=== PATIENT | male | born 1990 | race Caucasian/White ===

== ENCOUNTER 2016-06-11 03:31 | Emergency (ER) | payer OTHER ==
[2016-06-11 03:51] VITALS: BMI 26.6
[2016-06-11] MEDS ORDERED: LORAZEPAM CARPU-JECT 2 MG/ML DISP.SYRIN IVPUSH ONE (04:01)
[2016-06-11] MEDS ORDERED: ASPIRIN 325 MG ENTERIC COATED TABLET (FP) PO ONE (04:04)
[2016-06-11] MEDS ORDERED: LORAZEPAM CARPU-JECT 2 MG/ML DISP.SYRIN ONE (04:08)
[2016-06-11] MEDS ORDERED: ASPIRIN 325 MG ENTERIC COATED TABLET (FP) ONE (04:08)
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
[2016-06-11] MEDS ORDERED: SODIUM CHLORIDE 1,000 ML IV SCH (04:15)
[2016-06-11 04:26] LABS: BASOPHIL 0.7 % (0-2.0); EOSINOPHIL 0.3 % (0-4.5); MCH 28.1 pg (25.7-33.7); MCHC 32.9 g/dl (32.0-35.9); MEAN CELL VOLUME 85.4 fl (80-96); MEAN PLT VOLUME 7.6 fl (7.5-11.1); NEUTROPHILS 79.3 % (42.8-82.8); PLATELET COUNT 253 K/MM3 (134-434); RDW 14.2 % (11.9-15.9); WHITE BLOOD COUNT 11.9 K/mm3 (4.0-10.0)
[2016-06-11 04:27] LABS: URINE APPEARANCE CLEAR; URINE BILIRUBIN NEGATIVE (NEGATIVE); URINE COLOR COLORLESS; URINE GLUCOSE (UA) NEGATIVE (NEGATIVE); URINE KETONE NEGATIVE (NEGATIVE); URINE LEUK ESTERASE NEGATIVE (NEGATIVE); URINE NITRITE NEGATIVE (NEGATIVE); URINE PROTEIN NEGATIVE (NEGATIVE); URINE UROBILINOGEN NEGATIVE E.U./dl (0.2-1.0)
[2016-06-11 04:28] LABS: URINE BLOOD 1+ (NEGATIVE)
[2016-06-11 04:29] LABS: URINE BACTERIA RARE /hpf (NONE SEEN); URINE RBC <1 /hpf (0-3); URINE WBC <1 /hpf (3-5)
[2016-06-11 04:42] LABS: URINE MARIJUANA THC POSITIVE ng/ml (CUTOFF=50)
[2016-06-11 04:44] LABS: INR 1.27 (0.82-1.09)
[2016-06-11 04:47] LABS: ACTIVATED PTT 39.2 SECONDS (26.9-34.4)
[2016-06-11 04:55] LABS: ALBUMIN 4.2 g/dl (3.4-5.0); ANION GAP 10 (8-16); BILIRUBIN,TOTAL 0.2 mg/dL (0.2-1.0); CALCIUM 9.5 mg/dL (8.5-10.1); CO2 28 mmol/L (21-32); CREATININE 0.8 mg/dL (0.7-1.3); GLUCOSE,RANDOM 95 mg/dL (74-106); SGOT/AST 15 U/L (15-37); SGPT/ALT 25 U/L (12-78); TOT PROT 7.5 g/dl (6.4-8.2)
[2016-06-11 04:58] LABS: ALK PHOS 77 U/L (45-117); TROPONIN I < 0.02 ng/ml (0.00-0.05)
[2016-06-11 07:36] LABS: TROPONIN I < 0.02 ng/ml (0.00-0.05)
--- NOTE | 2016-06-11 07:44 | PDOC ---
*Physical Exam - Vital Signs Last Vital Signs Temp Pulse Resp BP Pulse Ox 98.3 F 80 18 120/73 99 06/11/16 03:44 06/11/16 07:00 06/11/16 07:00 06/11/16 07:00 06/11/16 07:00 ED Treatment Course - LABORATORY CBC & Chemistry Diagram: 06/11/16 04:02 06/11/16 04:02 - ADDITIONAL ORDERS Additional order review: Laboratory Results 06/11/16 06/11/16 06/11/16 06:40 04:18 04:18 INR 1.27 H PTT (Actin FS) 39.2 H D-Dimer < 200 Sodium Potassium Chloride Carbon Dioxide Anion Gap BUN Creatinine Creat Clearance w eGFR Random Glucose Calcium Total Bilirubin AST ALT Alkaline Phosphatase Creatine Kinase 178 Creatine Kinase Index CK-MB (CK-2) CK-MB (CK-2) Rel Index Troponin I < 0.02 Total Protein Albumin Urine Color Urine Appearance Urine pH Ur Specific [place] Urine Protein Urine Glucose (UA) Urine Ketones Urine Blood Urine Nitrite Urine Bilirubin Urine Urobilinogen Ur Leukocyte Esterase Urine RBC Urine WBC Urine Bacteria Opiates Screen Methadone Screen Barbiturate Screen Phencyclidine Screen Ur Amphetamines Screen MDMA (Ecstasy) Screen Benzodiazepines Screen Cocaine Screen U Marijuana (THC) Screen 06/11/16 06/11/16 06/11/16 04:02 04:02 04:02 INR PTT (Actin FS) D-Dimer Sodium 141 Potassium 4.1 Chloride 103 Carbon Dioxide 28 Anion Gap 10 BUN 16 D Creatinine 0.8 D Creat Clearance w eGFR > 60 Random Glucose 95 Calcium 9.5 Total Bilirubin 0.2 AST 15 ALT 25 Alkaline Phosphatase 77 Creatine Kinase 217 D Creatine Kinase Index Y CK-MB (CK-2) < 1.000 CK-MB (CK-2) Rel Index Cancelled Troponin I < 0.02 Total Protein 7.5 Albumin 4.2 Urine Color Urine Appearance Urine pH Ur Specific [place] Urine Protein Urine Glucose (UA) Urine Ketones Urine Blood Urine Nitrite Urine Bilirubin Urine Urobilinogen Ur Leukocyte Esterase Urine RBC Urine WBC Urine Bacteria Opiates Screen Negative Methadone Screen Negative Barbiturate Screen Negative Phencyclidine Screen Positive Ur Amphetamines Screen Negative MDMA (Ecstasy) Screen Negative Benzodiazepines Screen Negative Cocaine Screen Negative U Marijuana (THC) Screen Positive 06/11/16 04:02 INR PTT (Actin FS) D-Dimer Sodium Potassium Chloride Carbon Dioxide Anion Gap BUN Creatinine Creat Clearance w eGFR Random Glucose Calcium Total Bilirubin AST ALT Alkaline Phosphatase Creatine Kinase Creatine Kinase Index CK-MB (CK-2) CK-MB (CK-2) Rel Index Troponin I Total Protein Albumin Urine Color Colorless Urine Appearance Clear Urine pH 6.0 Ur Specific [place] 1.006 Urine Protein Negative Urine Glucose (UA) Negative Urine Ketones Negative Urine Blood 1+ H Urine Nitrite Negative Urine Bilirubin Negative Urine Urobilinogen Negative Ur Leukocyte Esterase Negative Urine RBC <1 Urine WBC <1 Urine Bacteria Rare Opiates Screen Methadone Screen Barbiturate Screen Phencyclidine Screen Ur Amphetamines Screen MDMA (Ecstasy) Screen Benzodiazepines Screen Cocaine Screen U Marijuana (THC) Screen 06/11/16 04:02 RBC 5.37 MCV 85.4 MCHC 32.9 RDW 14.2 MPV 7.6 Neutrophils % 79.3 D Lymphocytes % 13.9 D Monocytes % 5.8 Eosinophils % 0.3 Basophils % 0.7 - Medications Given in the ED: ED Medications Discontinued Medications Generic Name Dose Route Start Last Admin Trade Name Esther PRN Reason Stop Dose Admin Aspirin 325 mg 06/11/16 04:04 06/11/16 04:25 Ecotrin - PO 06/11/16 04:05 325 mg ONCE ONE Administration Lorazepam 2 mg 06/11/16 04:01 06/11/16 04:25 Ativan Injection - IVPUSH 06/11/16 04:02 2 mg ONCE ONE Administration Medical Decision Making - Medical Decision Making 06/11/16 07:51 Patient endorsed to me by Dr. Deng at shift change. Patient presented with chest pain after using cocaine. UTox showed that it was actually PCP, and not cocaine. Serial trops negative x2. Stable for DC home. *DC/Admit/Observation/Transfer Diagnosis at time of Disposition: Chest pain Qualifiers: Chest pain type: unspecified Qualified Code(s): R07.9 - Chest pain, unspecified - Discharge Dispostion Disposition: HOME Condition at time of disposition: Stable Admit: No - Referrals Referrals: Jerman Zavala [Primary Care Provider] - - Patient Instructions Printed Discharge Instructions: DI for Chest Pain - Post Discharge Activity
[2016-06-11 07:51] VITALS: BP 114/67; PULSE 78; TEMP 98
--- NOTE | 2016-06-12 21:33 | EKG ---
Test Reason : Blood Pressure : / mmHG Vent. Rate : 109 BPM Atrial Rate : 109 BPM P-R Int : 132 ms QRS Dur : 082 ms QT Int : 294 ms P-R-T Axes : 073 060 033 degrees QTc Int : 395 ms SINUS TACHYCARDIA BIATRIAL ENLARGEMENT ST ELEVATION, CONSIDER EARLY REPOLARIZATION, PERICARDITIS, OR INJURY NONSPECIFIC ST AND T WAVE ABNORMALITY ABNORMAL ECG WHEN COMPARED WITH ECG OF 08-SEP-2012 14:11, VENT. RATE HAS INCREASED BY 40 BPM NONSPECIFIC T WAVE ABNORMALITY IS NOW PRESENT Confirmed by CHIN STUART MD ([id number]) on 06/12/2016 9:33:18 PM Referred By: Confirmed By:CHIN STUART MD
== END 2016-06-11 08:03 | disposition home or self-care (01) ==
LOC: JER 03:31
PROC: 3E033NZ Introduction of Analgesics, Hypnotics, Sedatives into Peripheral Vein, Percutaneous Approach (ICD-10-PCS; principal; 2016-06-11)
DX: R07.9 Chest pain, unspecified (principal); J45.909 Unspecified asthma, uncomplicated; F14.10 Cocaine abuse, uncomplicated; F16.10 Hallucinogen abuse, uncomplicated
CPT/HCPCS: 36415; 71020-TC; 80053; 80307; 81003; 81015; 82550; 82553; 84484; 85025; 85379; 85610; 85651; 85730; 93005; 93010; 96374; 99285-25

== ENCOUNTER 2016-06-28 09:16 | Inpatient (IN) | payer OTHER ==
[2016-06-28 11:23] VITALS: BMI 25.0
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
[2016-06-28] MEDS ORDERED: ACETAMINOPHEN 325 MG TABLET (FP) PO PRN (14:19)
[2016-06-28] MEDS ORDERED: guaiFENesin/D-METHORPHAN HB 10 ML UNIT-DOSE CUPS PO PRN (14:19)
[2016-06-28] MEDS ORDERED: IBUPROFEN 400 MG TABLET (FP) PO PRN (14:19)
[2016-06-28] MEDS ORDERED: MAG HYDROX/AL HYDROX/SIMETH 30 ML UNIT-DOSE CUP PO PRN (14:19)
[2016-06-28] MEDS ORDERED: P-EPHED 60MG/TRIPROLIDI 2.5MG TABLET PO PRN (14:19)
[2016-06-28] MEDS ORDERED: chlordiazePOXIDE HCL 25 MG CAPSULE PO PRN (14:19)
[2016-06-28] MEDS ORDERED: MENTHOL/PHENOL 1 EACH UD MM PRN (14:19)
[2016-06-28] MEDS ORDERED: LOPERAMIDE HCL 2 MG CAPSULE PO PRN (14:19)
[2016-06-28] MEDS ORDERED: MAGNESIUM CITRATE 300 ML BOTTLE PO PRN (14:19)
[2016-06-28] MEDS ORDERED: MAGNESIUM HYDROX 2400MG/30ML ORAL SUSPENSION 30 ML CUP PO PRN (14:19)
[2016-06-28] MEDS ORDERED: hydrOXYzine PAMOATE 50 MG CAPSULE (FP) PO PRN (14:19)
[2016-06-28] MEDS ORDERED: ALBUTEROL SO4 6.7 GM HFA INHALER IH PRN (14:21)
[2016-06-28] MEDS ORDERED: chlordiazePOXIDE HCL 25 MG CAPSULE PO ONE (14:24)
[2016-06-28 16:48] LABS: URINE APPEARANCE CLEAR; URINE BILIRUBIN NEGATIVE (NEGATIVE); URINE BLOOD NEGATIVE (NEGATIVE); URINE COLOR YELLOW; URINE GLUCOSE (UA) NEGATIVE (NEGATIVE); URINE KETONE NEGATIVE (NEGATIVE); URINE LEUK ESTERASE NEGATIVE (NEGATIVE); URINE NITRITE NEGATIVE (NEGATIVE); URINE PROTEIN NEGATIVE (NEGATIVE); URINE UROBILINOGEN NEGATIVE E.U./dl (0.2-1.0)
[2016-06-28] MEDS: chlordiazePOXIDE HCL 25 MG CAPSULE PO SCH ×2 (17:19→22:05)
[2016-06-28] MEDS: diphenhydrAMINE HCL 50 MG CAPSULE PO PRN (22:05)
[2016-06-28] MEDS: THIAMINE HCL 100 MG TABLET (FP) PO SCH (22:06)
[2016-06-29] MEDS: chlordiazePOXIDE HCL 25 MG CAPSULE PO SCH ×4 (05:35→22:37)
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
[2016-06-29 10:14] LABS: HIV 1 & 2 AB NEGATIVE; HIV 1 AGp24 NEGATIVE
[2016-06-29 10:17] LABS: MCHC 32.4 g/dl (32.0-35.9); MEAN CELL VOLUME 86.2 fl (80-96); MEAN PLT VOLUME 8.5 fl (7.5-11.1); PLATELET COUNT 252 K/MM3 (134-434); RDW 13.4 % (11.9-15.9)
[2016-06-29] MEDS: PRENATAL VITAMINS W/ FOLIC ACID TABLET (FP) PO SCH (10:30)
[2016-06-29 10:50] LABS: ALBUMIN 3.9 g/dl (3.4-5.0); ALK PHOS 80 U/L (45-117); ANION GAP 9 (8-16); BILIRUBIN,TOTAL 0.4 mg/dL (0.2-1.0); CALCIUM 9.2 mg/dL (8.5-10.1); CO2 29 mmol/L (21-32); GLUCOSE,RANDOM 75 mg/dL (74-106); SGOT/AST 14 U/L (15-37); SGPT/ALT 24 U/L (12-78); TOT PROT 7.5 g/dl (6.4-8.2)
--- NOTE | 2016-06-29 11:07 | EKG ---
Test Reason : Blood Pressure : / mmHG Vent. Rate : 082 BPM Atrial Rate : 082 BPM P-R Int : 132 ms QRS Dur : 086 ms QT Int : 344 ms P-R-T Axes : 042 062 -02 degrees QTc Int : 401 ms SINUS RHYTHM WITH MARKED SINUS ARRHYTHMIA NONSPECIFIC T WAVE ABNORMALITY ABNORMAL ECG WHEN COMPARED WITH ECG OF 11-JUN-2016 03:51, NO SIGNIFICANT CHANGE WAS FOUND Confirmed by GIBSON STEELE, LORA ([id number]) on 06/29/2016 11:07:09 AM Referred By: Will Hartman Confirmed By:LORA ARREAGA MD
--- NOTE | 2016-06-29 11:15 | PN ---
S CIWA - CIWA Score Nausea/Vomitin-No Nausea/No Vomiting Muscle Tremors: 4-Moderate,w/Arms Extend Anxiety: 3 Agitation: 4-Moderately Restless Paroxysmal Sweats: 3 Orientation: 0-Oriented Tacttile Disturbances: 0-None Auditory Disturbances: 0-None Visual Disturbances: 0-None Headache: 1-Very Mild CIWA-Ar Total Score: 15 BHS Progress Note (SOAP) Subjective: sweats shakes interrupted sleep agitation body aches Objective: 06/29/16 11:14 Vital Signs Temperature 97.7 F 06/29/16 10:00 Pulse Rate 95 H 06/29/16 10:00 Respiratory Rate 20 06/29/16 10:00 Blood Pressure 130/62 06/29/16 10:00 O2 Sat by Pulse Oximetry (%) Laboratory Tests 06/28/16 06/28/16 06/29/16 11:30 15:30 06:00 WBC 9.0 RBC 5.63 H Hgb 15.8 Hct 48.6 MCV 86.2 MCHC 32.4 RDW 13.4 Plt Count 252 MPV 8.5 D Sodium Potassium Chloride Carbon Dioxide Anion Gap BUN Creatinine Creat Clearance w eGFR Random Glucose Calcium Total Bilirubin AST ALT Alkaline Phosphatase Total Protein Albumin Urine Color Yellow Urine Appearance Clear Urine pH 5.0 Ur Specific [place] 1.023 Urine Protein Negative Urine Glucose (UA) Negative Urine Ketones Negative Urine Blood Negative Urine Nitrite Negative Urine Bilirubin Negative Urine Urobilinogen Negative Ur Leukocyte Esterase Negative HIV 1&2 Antibody Screen Negative HIV P24 Antigen Negative 06/29/16 06:00 WBC RBC Hgb Hct MCV MCHC RDW Plt Count MPV Sodium 140 Potassium 4.2 Chloride 102 Carbon Dioxide 29 Anion Gap 9 BUN 15 Creatinine 1.0 D Creat Clearance w eGFR > 60 Random Glucose 75 D Calcium 9.2 Total Bilirubin 0.4 D AST 14 L ALT 24 Alkaline Phosphatase 80 Total Protein 7.5 Albumin 3.9 Urine Color Urine Appearance Urine pH Ur Specific [place] Urine Protein Urine Glucose (UA) Urine Ketones Urine Blood Urine Nitrite Urine Bilirubin Urine Urobilinogen Ur Leukocyte Esterase HIV 1&2 Antibody Screen HIV P24 Antigen awake/alert ambulating no acute distress Assessment: 06/29/16 11:15 withdrawal sx Plan: continue detox increase fluids
[2016-06-29] MEDS: diphenhydrAMINE HCL 50 MG CAPSULE PO PRN (22:37)
[2016-06-29] MEDS: THIAMINE HCL 100 MG TABLET (FP) PO SCH (22:37)
[2016-06-30] MEDS: chlordiazePOXIDE HCL 25 MG CAPSULE PO SCH ×2 (05:22→10:14)
[2016-06-30] MEDS: PRENATAL VITAMINS W/ FOLIC ACID TABLET (FP) PO SCH (10:15)
--- NOTE | 2016-06-30 10:50 | PN ---
S CIWA - CIWA Score Nausea/Vomitin Muscle Tremors: 2 Anxiety: 3 Agitation: 2 Paroxysmal Sweats: 3 Orientation: 0-Oriented Tacttile Disturbances: 2-Mild Itch/Numbness/Burn Auditory Disturbances: 0-None Visual Disturbances: 0-None Headache: 0-None Present CIWA-Ar Total Score: 14 BHS Progress Note (SOAP) Subjective: interrupted sleep, sweats, constipation Objective: 06/30/16 10:48 Vital Signs Temperature 97.8 F 06/30/16 09:35 Pulse Rate 86 06/30/16 09:35 Respiratory Rate 16 06/30/16 09:35 Blood Pressure 119/69 06/30/16 09:35 O2 Sat by Pulse Oximetry (%) Laboratory Tests 06/28/16 06/28/16 06/29/16 11:30 15:30 06:00 WBC 9.0 RBC 5.63 H Hgb 15.8 Hct 48.6 MCV 86.2 MCHC 32.4 RDW 13.4 Plt Count 252 MPV 8.5 D Sodium Potassium Chloride Carbon Dioxide Anion Gap BUN Creatinine Creat Clearance w eGFR Random Glucose Calcium Total Bilirubin AST ALT Alkaline Phosphatase Total Protein Albumin Urine Color Yellow Urine Appearance Clear Urine pH 5.0 Ur Specific [place] 1.023 Urine Protein Negative Urine Glucose (UA) Negative Urine Ketones Negative Urine Blood Negative Urine Nitrite Negative Urine Bilirubin Negative Urine Urobilinogen Negative Ur Leukocyte Esterase Negative RPR Titer HIV 1&2 Antibody Screen Negative HIV P24 Antigen Negative 06/29/16 06/29/16 06:00 06:00 WBC RBC Hgb Hct MCV MCHC RDW Plt Count MPV Sodium 140 Potassium 4.2 Chloride 102 Carbon Dioxide 29 Anion Gap 9 BUN 15 Creatinine 1.0 D Creat Clearance w eGFR > 60 Random Glucose 75 D Calcium 9.2 Total Bilirubin 0.4 D AST 14 L ALT 24 Alkaline Phosphatase 80 Total Protein 7.5 Albumin 3.9 Urine Color Urine Appearance Urine pH Ur Specific [place] Urine Protein Urine Glucose (UA) Urine Ketones Urine Blood Urine Nitrite Urine Bilirubin Urine Urobilinogen Ur Leukocyte Esterase RPR Titer Nonreactive HIV 1&2 Antibody Screen HIV P24 Antigen pt aox3 lying in bed in nad Assessment: 06/30/16 10:49 withdrawal sx's constipation Plan: cont. detox increase fluids mom
[2016-06-30] MEDS: chlordiazePOXIDE 5 MG CAPSULE PO SCH ×2 (18:19→22:06)
[2016-06-30] MEDS: THIAMINE HCL 100 MG TABLET (FP) PO SCH (22:06)
[2016-07-01] MEDS: chlordiazePOXIDE 5 MG CAPSULE PO SCH (05:58)
--- NOTE | 2016-07-01 09:31 | PN ---
S Progress Note (SOAP) Subjective: ALERT,IRRITABLE,ANXIOUS,INTERRUPTED SLEEP Objective: 07/01/16 09:30 Vital Signs Temperature 98 F 07/01/16 06:52 Pulse Rate 71 07/01/16 06:52 Respiratory Rate 18 07/01/16 06:52 Blood Pressure 107/61 07/01/16 06:52 O2 Sat by Pulse Oximetry (%) Assessment: 07/01/16 09:30 WITHDRAWAL SYMPTOM Plan: CONTINUE DETOX
--- NOTE | 2016-07-01 09:33 | PN ---
S Progress Note Note: ADDENDUM PATIENT DID NOT WANT TO COMPLETE TREATMENT,SIGNED RELEASE AMA,SEEN BY COUNSELOR, FOLLOW UP WITH NEW [facility]OCUS ARRANGEMENT
--- NOTE | 2016-07-01 09:36 | DS ---
[facility] Detox Discharge Summary Admission Date: 06/28/16 Discharge Date: 07/01/16 - History Present History: Alcohol Dependence Additional Comments: PATIENT DID NOT WANT TO COMPLETE TREATMENT,SEEN BY COUNSELOR,SIGNED RELEASE AMA, FOLLOW UP WITH NEW FOCUS ARRANGEMENT AND PMD FOR MEDICAL PROBLEM Pertinent Past History: ASTHMA NICOTINE DEPENDENCE CARDIAC MURMUR - Physical Exam Results Vital Signs: Vital Signs Temperature 98 F 07/01/16 06:52 Pulse Rate 71 07/01/16 06:52 Respiratory Rate 18 07/01/16 06:52 Blood Pressure 107/61 07/01/16 06:52 O2 Sat by Pulse Oximetry (%) Pertinent Admission Physical Exam Findings: WITHDRAWAL SYMPTOM - Treatment Patient has Accepted a Rehab Referral to: [facility] - Medication Discharge Medications: Ambulatory Orders Albuterol Sulfate Inhaler - [Ventolin Hfa Inhaler -] 2 inh PO Q4H PRN 06/28/16 - AMA Did Patient Leave Against Medical Advice: Yes
[2016-07-01 10:27] VITALS: BP 130/63; PULSE 99; TEMP 97.9
[2016-07-01] MEDS ORDERED: chlordiazePOXIDE HCL 10 MG CAPSULE PO SCH (17:00)
== END 2016-07-01 10:21 | disposition left against medical advice (07) | DRG 770 ==
LOC: YASAS 09:16 → Y6N 12:05
PROVIDERS: ADMIT Internal Medicine Addiction Medicine; ATTEND Internal Medicine Addiction Medicine
PROC: HZ2ZZZZ Detoxification Services for Substance Abuse Treatment (ICD-10-PCS; principal; 2016-07-01)
DX: F10.230 Alcohol dependence with withdrawal, uncomplicated (principal); F17.210 Nicotine dependence, cigarettes, uncomplicated; F19.24 Other psychoactive substance dependence with psychoactive substance-induced mood disorder; F16.10 Hallucinogen abuse, uncomplicated; J45.20 Mild intermittent asthma, uncomplicated; R01.1 Cardiac murmur, unspecified; S29.011A Strain of muscle and tendon of front wall of thorax, initial encounter; X58.XXXA Exposure to other specified factors, initial encounter; Y93.9 Activity, unspecified; Y92.9 Unspecified place or not applicable; Y99.9 Unspecified external cause status
CPT/HCPCS: 36415; 80053; 81003; 85027; 86593; 87389; 93005; 93010

== ENCOUNTER 2017-08-10 21:30 | Emergency (ER) | payer OTHER ==
--- NOTE | 2017-08-10 21:42 | PDOC ---
Rapid Medical Evaluation Chief Complaint: Weakness Time Seen by Provider: 08/10/17 21:35 Medical Evaluation: Allergies Allergy/AdvReac Type Severity Reaction Status Date / Time No Known Allergies Allergy Verified 06/28/16 11:28 c/o " i dont feel good i want to be checked out." + nausea denies drug abuse. denies SI, HI O: patient alert diaphoretic. tachycardic A: weakness P: cbc cmp tsh ua Urine drug tox patient to the ER for further management of care. Discharge Disposition - Referrals Referrals: Satinder Zavala MD [Primary Care Provider] - - Patient Instructions - Post Discharge Activity
[2017-08-10 22:17] VITALS: BP 154/74; PULSE 110; TEMP 98.4; BMI 25.0
== END 2017-08-10 21:58 | disposition left against medical advice (07) ==
LOC: JER 21:30
DX: Z53.21 Procedure and treatment not carried out due to patient leaving prior to being seen by health care provider (principal)
CPT/HCPCS: 99281-25

== ENCOUNTER 2019-01-25 08:58 | Inpatient (IN) | payer OTHER ==
[2019-01-25 09:30] VITALS: BMI 24.3
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
[2019-01-25] MEDS ORDERED: MAGNESIUM HYDROX 2400MG/30ML ORAL SUSPENSION 30 ML CUP PO PRN (10:18)
[2019-01-25] MEDS ORDERED: ACETAMINOPHEN 325 MG TABLET (FP) PO PRN (10:18)
[2019-01-25] MEDS ORDERED: MAG HYDROX/AL HYDROX/SIMETH 30 ML UNIT-DOSE CUP PO PRN (10:18)
[2019-01-25] MEDS ORDERED: hydrOXYzine PAMOATE 25 MG CAPSULE (FP) PO PRN (10:18)
[2019-01-25] MEDS ORDERED: MAGNESIUM CITRATE 300 ML BOTTLE PO PRN (10:18)
[2019-01-25] MEDS ORDERED: LOPERAMIDE HCL 2 MG CAPSULE PO PRN (10:18)
[2019-01-25] MEDS ORDERED: P-EPHED 60MG/TRIPROLIDI 2.5MG TABLET PO PRN (10:18)
[2019-01-25] MEDS ORDERED: MENTHOL/PHENOL 1 EACH UD MM PRN (10:18)
[2019-01-25] MEDS ORDERED: guaiFENesin 200 MG/10 ML 10 ML UNIT-DOSE CUPS PO PRN (10:18)
[2019-01-25] MEDS ORDERED: IBUPROFEN 400 MG TABLET (FP) PO PRN (10:18)
[2019-01-25] MEDS ORDERED: ALBUTEROL SO4 0.083% IH SOL 2.5 MG/3 ML VIAL.NEB. NEB PRN (10:21)
[2019-01-25] MEDS ORDERED: ALBUTEROL SO4 8 GM HFA INHALER IH PRN (10:21)
[2019-01-25 11:21] VITALS: BP 109/64; PULSE 77; TEMP 97.8
[2019-01-25 15:35] LABS: HEMATOCRIT 41.4 % (35.4-49); HEMOGLOBIN 13.5 GM/dL (11.7-16.9); MCH 28.2 pg (25.7-33.7); MCHC 32.8 g/dl (32.0-35.9); MEAN PLT VOLUME 8.1 fl (7.5-11.1); PLATELET COUNT 229 K/MM3 (134-434); RBC 4.81 M/mm3 (4.00-5.60); WHITE BLOOD COUNT 6.1 K/mm3 (4.0-10.0)
[2019-01-25 15:45] LABS: ALBUMIN 3.6 g/dl (3.4-5.0); BILIRUBIN,TOTAL 0.2 mg/dL (0.2-1); BLOOD UREA NITROGEN 14.8 mg/dL (7-18); CALCIUM 8.6 mg/dL (8.5-10.1); POTASSIUM 4.2 mmol/L (3.5-5.1); TOT PROT 6.4 g/dl (6.4-8.2)
[2019-01-25] MEDS ORDERED: MELATONIN 5 MG TABLETS PO PRN (22:00)
[2019-01-25] MEDS: THIAMINE HCL 100 MG TABLET (FP) PO SCH (22:15)
[2019-01-26] MEDS: PRENATAL VITAMINS W/ FOLIC ACID TABLET (FP) PO SCH ×2 (10:43→10:54)
[2019-01-26 18:46] LABS: EPI CELLS 7.3 /HPF (0-5/HPF); HYALINE CASTS 4 /lpf (0-8); URINE APPEARANCE CLEAR; URINE BACTERIA 5.3 /hpf (NEGATIVE); URINE BILIRUBIN NEGATIVE (NEGATIVE); URINE COLOR YELLOW; URINE GLUCOSE (UA) NEGATIVE (NEGATIVE); URINE KETONE NEGATIVE (NEGATIVE); URINE LEUK ESTERASE 2+ (NEGATIVE); URINE NITRITE NEGATIVE (NEGATIVE); URINE PROTEIN NEGATIVE (NEGATIVE); URINE RBC 2 /hpf (0-4); URINE UROBILINOGEN 0.2 mg/dL (0.2-1.0); URINE WBC 61 /hpf (0-5)
[2019-01-26] MEDS: THIAMINE HCL 100 MG TABLET (FP) PO SCH (21:41)
[2019-01-27] MEDS: PRENATAL VITAMINS W/ FOLIC ACID TABLET (FP) PO SCH (09:54)
--- NOTE | 2019-01-27 13:38 | DS ---
[facility] Rehab Discharge Summary - [facility] Rehab Discharge Summary Admission Date: 01/25/19 Discharge Date: 01/27/19 - History Present History: Cannabis dependence, Cocaine dependence Pertinent Past History: pt was admitted 2 days ago for rehab from cocaine . pcp , darrell. Pt states he has to leave today- has a job interview. Pt has no complaints. Vital Signs - 24 hr 01/27/19 01/27/19 01/27/19 00:30 03:30 06:48 Respiratory 18 18 18 Rate - Discharge Physical Exam Vital Signs: Vital Signs Temperature 97.8 F 01/25/19 11:20 Pulse Rate 77 01/25/19 11:20 Respiratory Rate 18 01/27/19 06:48 Blood Pressure 109/64 01/25/19 11:20 O2 Sat by Pulse Oximetry (%) - Treatment Discharge Condition: Rehabilitated safely - Medication Discharge Medications: Ambulatory Orders Albuterol Sulfate Inhaler - [Ventolin Hfa Inhaler -] 2 inh PO Q4H PRN 06/28/16 - Medication-Assisted Treatment (MAT) Medication-Assisted Treatment (MAT): No - Discharge Instructions Diet, activity, other medical instructions: Diet: Activity: Other medical instructions: - Diagnosis (1) Cannabis dependence Current Visit: Yes Status: Chronic (2) Cocaine abuse, episodic use Current Visit: Yes Status: Chronic (3) Nicotine dependence Current Visit: Yes Status: Chronic Qualifiers: Nicotine product type: cigarettes Substance use status: uncomplicated Qualified Code(s): F17.210 - Nicotine dependence, cigarettes, uncomplicated - Follow-up Referral Minutes to complete discharge: 30 - AMA Did Patient Leave Against Medical Advice: No
== END 2019-01-27 13:54 | disposition home or self-care (01) | DRG 772 ==
LOC: YASAS 08:58 → Y3W 10:46
PROVIDERS: ADMIT Neuromusculoskeletal Medicine & OMM; ATTEND Neuromusculoskeletal Medicine & OMM
PROC: HZ42ZZZ Group Counseling for Substance Abuse Treatment, Cognitive-Behavioral (ICD-10-PCS; principal; 2019-01-25)
DX: F12.20 Cannabis dependence, uncomplicated (principal); F14.10 Cocaine abuse, uncomplicated; F16.10 Hallucinogen abuse, uncomplicated; F17.210 Nicotine dependence, cigarettes, uncomplicated; F90.9 Attention-deficit hyperactivity disorder, unspecified type; J45.909 Unspecified asthma, uncomplicated
CPT/HCPCS: 36415; 80053; 81003; 85027; 86593; 87389

== ENCOUNTER 2019-02-25 16:08 | Emergency (ER) | payer OTHER ==
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
[2019-02-25 16:16] VITALS: BP 141/90; PULSE 115; TEMP 98.6; BMI 25.0
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
== END 2019-02-25 18:26 | disposition home or self-care (01) ==
LOC: JER 16:08
DX: S49.82XD Other specified injuries of left shoulder and upper arm, subsequent encounter (principal); M25.512 Pain in left shoulder; M79.602 Pain in left arm; S00.83XD Contusion of other part of head, subsequent encounter; Y04.2XXD Assault by strike against or bumped into by another person, subsequent encounter
CPT/HCPCS: 73030-TC-LT-FY; 99282-25